=== PATIENT | female | born 1940 | race Caucasian/White ===

== ENCOUNTER 2017-05-12 18:11 | Inpatient (IN) | payer OTHER ==
[~2017-05-12] VITALS: Ht 154.9 cm; Wt 82.8 kg
[2017-05-12 19:56] LABS: BASOPHIL % 0.2 % (0-2); PLATELET COUNT 160 x10^3mcL (130-400)
[2017-05-12 19:57] LABS: RED CELL DISTRIBUTION WIDTH 24.5 % (11.5-14.5)
[2017-05-12 20:03] LABS: CALCIUM 8.4 mg/dL (8.5-10.1); CARBON DIOXIDE 28.1 mmol/L (21-32); CHLORIDE SERUM 101 mmol/L (98-107); CREATININE SERUM 3.8 mg/dL (0.6-1.0); GLUCOSE SERUM 116 mg/dL (74-106); POTASSIUM SERUM 3.7 mmol/L (3.5-5.1); SODIUM SERUM 138 mmol/L (136-145)
[2017-05-12 20:08] LABS: ALKALINE PHOSPHATASE 148 U/L (46-116); ALT/SGPT 19 U/L (14-59); AST/SGOT 22 U/L (15-37); BILIRUBIN TOTAL 0.4 mg/dL (0.20-1.00); HDL CHOLESTEROL 44 mg/dL (40-60)
[2017-05-12 20:10] LABS: ALBUMIN 1.6 g/dL (3.4-5.0); CHOLESTEROL 73 mg/dL (<200); TOTAL PROTEIN, SERUM 5.6 g/dL (6.4-8.2)
[2017-05-12] MEDS ORDERED: [UNRECOGNIZED DRUG - CODE] ID (20:33)
[2017-05-12] MEDS ORDERED: METOPROLOL TART50 MG PO (20:34)
[2017-05-12] MEDS ORDERED: NORCO1 TA2 PO (20:34)
[2017-05-12] MEDS ORDERED: LISINOPRIL2.5 MG PO (20:35)
[2017-05-12] MEDS ORDERED: GLUCOTROL5 MG PO (20:35)
[2017-05-12] MEDS ORDERED: ELIQUIS2.5 MG PO (20:35)
[2017-05-12] MEDS ORDERED: ASPIR 8181 MG PO (20:35)
[2017-05-12] MEDS ORDERED: PROTONIX40 MG PO (20:36)
[2017-05-12] MEDS ORDERED: DILTIAZEM HCL120 M2 PO (20:37)
[2017-05-12] MEDS ORDERED: LIPITOR40 MG PO (20:38)
[2017-05-12 22:05] LABS: PHOSPHOROUS 3.3 mg/dL (2.5-4.9)
[2017-05-12 22:06] LABS: CHOLESTEROL/HDL RATIO 1.7
[2017-05-12 22:07] VITALS: BP 123/53
[2017-05-12 22:10] LABS: T3 TOTAL 0.48 ng/mL
[2017-05-12 22:18] LABS: FREE T4 1.3 ng/dL (0.76-1.46); FREE THYROXINE INDEX 2.7 ug/dL (1.4-4.5); T4(THYROXINE) 6.1 ug/dL (4.7-13.3)
[2017-05-13] VITALS (7 sets, daily range): BP systolic 93–133; BP diastolic 34–70
[2017-05-13 09:10] LABS: CALCIUM 8.7 mg/dL (8.5-10.1); CARBON DIOXIDE 26.1 mmol/L (21-32); CHLORIDE SERUM 99 mmol/L (98-107); GLUCOSE SERUM 222 mg/dL (74-106); POTASSIUM SERUM 4.3 mmol/L (3.5-5.1); SODIUM SERUM 134 mmol/L (136-145)
[2017-05-13 09:22] LABS: BASOPHIL % 0.1 % (0-2); PLATELET COUNT 141 x10^3mcL (130-400)
[2017-05-13 09:23] LABS: RED CELL DISTRIBUTION WIDTH 23.7 % (11.5-14.5)
[2017-05-13 09:41] LABS: rbc morphology (normal/abnorm) ABNORMAL (NORMAL)
[2017-05-14] VITALS: BP 93/50
[2017-05-14 05:21] VITALS: BP 113/50
[2017-05-14 08:03] LABS: BASOPHIL % 0.5 % (0-2); PLATELET COUNT 166 x10^3mcL (130-400)
[2017-05-14 08:11] LABS: RED CELL DISTRIBUTION WIDTH 23.1 % (11.5-14.5)
[2017-05-14 08:16] LABS: CALCIUM 8.5 mg/dL (8.5-10.1); CARBON DIOXIDE 26.1 mmol/L (21-32); CHLORIDE SERUM 97 mmol/L (98-107); GLUCOSE SERUM 68 mg/dL (74-106); MAGNESIUM 1.7 mg/dL (1.8-2.4); PHOSPHOROUS 4.4 mg/dL (2.5-4.9); POTASSIUM SERUM 4.5 mmol/L (3.5-5.1); SODIUM SERUM 131 mmol/L (136-145)
[2017-05-14 08:23] LABS: CREATININE SERUM 4.3 mg/dL (0.6-1.0)
[2017-05-14 09:25] VITALS: BP 102/42
[2017-05-14 13:30] VITALS: BP 124/50
[2017-05-14 17:10] VITALS: BP 92/30
[2017-05-14 21:58] VITALS: BP 101/39
[2017-05-15 05:59] VITALS: BP 97/38
[2017-05-15 06:33] LABS: CALCIUM 8.8 mg/dL (8.5-10.1); CARBON DIOXIDE 27.6 mmol/L (21-32); CHLORIDE SERUM 96 mmol/L (98-107); CREATININE SERUM 3.1 mg/dL (0.6-1.0); GLUCOSE SERUM 130 mg/dL (74-106); SODIUM SERUM 130 mmol/L (136-145)
[2017-05-15 06:45] LABS: BASOPHIL % 0.2 % (0-2)
[2017-05-15 07:20] LABS: RED CELL DISTRIBUTION WIDTH 22.5 % (11.5-14.5)
[2017-05-15 07:21] LABS: PLATELET COUNT 158 x10^3mcL (130-400)
[2017-05-15 09:17] VITALS: BP 108/48
[2017-05-15 13:27] VITALS: BP 118/53
[2017-05-15 17:45] VITALS: BP 106/51
[2017-05-15 21:23] VITALS: BP 110/47
[2017-05-15 23:25] VITALS: BP 131/54
[2017-05-16 05:31] VITALS: BP 116/44
[2017-05-16 06:23] LABS: CALCIUM 8.5 mg/dL (8.5-10.1); CARBON DIOXIDE 26.6 mmol/L (21-32); CHLORIDE SERUM 94 mmol/L (98-107); CREATININE SERUM 2.6 mg/dL (0.6-1.0); GLUCOSE SERUM 103 mg/dL (74-106); MAGNESIUM 1.6 mg/dL (1.8-2.4); POTASSIUM SERUM 3.3 mmol/L (3.5-5.1); SODIUM SERUM 129 mmol/L (136-145)
[2017-05-16 08:00] LABS: PLATELET COUNT 181 x10^3mcL (130-400)
[2017-05-16 08:56] VITALS: BP 114/51
[2017-05-16 11:25] LABS: ATYPICAL LYMPH 3 %; BAND NEUTROPHIL 0 % (0-10); BASOPHIL 1 % (0-2); MONOCYTE 8 % (0-7); SEGMENTED NEUTROPHILS 72 % (37-75)
[2017-05-16 11:26] LABS: PLATELET MORPHOLOGY PLATELETS DECREASED; rbc morphology (normal/abnorm) ABNORMAL (NORMAL)
[2017-05-16 14:28] VITALS: BP 108/55
[2017-05-16 17:49] VITALS: BP 108/55
[2017-05-16 17:54] VITALS: BP 121/50
[2017-05-16 21:52] VITALS: BP 99/28
[2017-05-17 05:37] VITALS: BP 106/34
[2017-05-17 06:55] LABS: CALCIUM 8.6 mg/dL (8.5-10.1); CARBON DIOXIDE 25.7 mmol/L (21-32); CHLORIDE SERUM 93 mmol/L (98-107); CREATININE SERUM 3.3 mg/dL (0.6-1.0); GLUCOSE SERUM 125 mg/dL (74-106); MAGNESIUM 2.2 mg/dL (1.8-2.4); PHOSPHOROUS 4.7 mg/dL (2.5-4.9); POTASSIUM SERUM 4.2 mmol/L (3.5-5.1); SODIUM SERUM 128 mmol/L (136-145)
[2017-05-17 07:05] LABS: BASOPHIL % 0.7 % (0-2); PLATELET COUNT 191 x10^3mcL (130-400)
[2017-05-17 07:28] LABS: RED CELL DISTRIBUTION WIDTH 21.9 % (11.5-14.5)
[2017-05-17 09:27] VITALS: BP 132/59
[2017-05-17 13:43] VITALS: BP 108/42
[2017-05-17 17:39] VITALS: BP 135/58
[2017-05-17 21:52] VITALS: BP 101/47
[2017-05-18 05:52] VITALS: BP 123/69
[2017-05-18 07:37] LABS: CALCIUM 8.5 mg/dL (8.5-10.1); CHLORIDE SERUM 90 mmol/L (98-107); CREATININE SERUM 3.9 mg/dL (0.6-1.0); GLUCOSE SERUM 143 mg/dL (74-106); POTASSIUM SERUM 4.7 mmol/L (3.5-5.1)
[2017-05-18 07:39] LABS: SODIUM SERUM 124 mmol/L (136-145)
[2017-05-18 09:39] VITALS: BP 133/67
[2017-05-18 09:40] LABS: BASOPHIL % 0.7 % (0-2); PLATELET COUNT 213 x10^3mcL (130-400)
[2017-05-18 09:44] LABS: RED CELL DISTRIBUTION WIDTH 20.8 % (11.5-14.5)
[2017-05-18] MEDS ORDERED: LAC PO (15:11)
[2017-05-18] MEDS ORDERED: CLEOCIN HCL300 MG PO (15:11)
[2017-05-18] MEDS ORDERED: LEVAQUIN750 MG PO (15:11)
[2017-05-18 16:29] VITALS: BP 112/60
[2017-05-18 16:43] LABS: CARBON DIOXIDE 22.4 mmol/L (21-32); CHLORIDE SERUM 96 mmol/L (98-107); CREATININE SERUM 2.9 mg/dL (0.6-1.0); GLUCOSE SERUM 172 mg/dL (74-106); POTASSIUM SERUM 3.5 mmol/L (3.5-5.1); SODIUM SERUM 130 mmol/L (136-145)
== END 2017-05-18 17:11 | DRG 720 ==
LOC: ED 18:11 → DU 20:35 → MU 05-18 06:25
PROVIDERS: Emergency Medicine; Family Medicine; Internal Medicine Nephrology; ADMIT Family Medicine
PROC: 5A1D70Z Performance of Urinary Filtration, Intermittent, Less than 6 Hours Per Day (ICD-10-PCS; principal; 2017-05-14)
PROC: 5A1D70Z Performance of Urinary Filtration, Intermittent, Less than 6 Hours Per Day (ICD-10-PCS; 2017-05-15)
PROC: 5A1D70Z Performance of Urinary Filtration, Intermittent, Less than 6 Hours Per Day (ICD-10-PCS; 2017-05-18)
DX: A41.9 Sepsis, unspecified organism (principal); N17.0 Acute kidney failure with tubular necrosis; J69.0 Pneumonitis due to inhalation of food and vomit; I21.A1 Myocardial infarction type 2; E43 Unspecified severe protein-calorie malnutrition; G93.41 Metabolic encephalopathy; I50.43 Acute on chronic combined systolic (congestive) and diastolic (congestive) heart failure; I42.9 Cardiomyopathy, unspecified; N18.6 End stage renal disease; I48.91 Unspecified atrial fibrillation; E11.649 Type 2 diabetes mellitus with hypoglycemia without coma; R65.20 Severe sepsis without septic shock; I13.2 Hypertensive heart and chronic kidney disease with heart failure and with stage 5 chronic kidney disease, or end stage renal disease; E05.90 Thyrotoxicosis, unspecified without thyrotoxic crisis or storm; D63.1 Anemia in chronic kidney disease; H54.62 Unqualified visual loss, left eye, normal vision right eye; E66.9 Obesity, unspecified; Z66 Do not resuscitate; Z99.2 Dependence on renal dialysis; Z68.33 Body mass index [BMI] 33.0-33.9, adult; Z79.84 Long term (current) use of oral hypoglycemic drugs; Z86.73 Personal history of transient ischemic attack (TIA), and cerebral infarction without residual deficits; Z88.0 Allergy status to penicillin; K21.9 Gastro-esophageal reflux disease without esophagitis; E78.5 Hyperlipidemia, unspecified; E87.1 Hypo-osmolality and hyponatremia; E87.6 Hypokalemia; H54.40 Blindness, one eye, unspecified eye
CPT/HCPCS: 82962; 83880; 84439; 97110-GP; J1610; J1885; J1956; J2310; J3475; J3490; J7030; J7042; J7070; J7620; P9047; Q0092

== ENCOUNTER 2017-06-07 14:00 | Inpatient (IN) | payer OTHER ==
[~2017-06-07] VITALS: Ht 152.4 cm; Wt 81.9 kg
[~2017-06-07 14:00] MED LIST: ASPIR 8181 MG PO; CLEOCIN HCL300 MG PO; DILTIAZEM HCL120 M2 PO; ELIQUIS2.5 MG PO; GLUCOTROL5 MG PO; LAC PO; LEVAQUIN750 MG PO; LIPITOR40 MG PO; LISINOPRIL2.5 MG PO; METOPROLOL TART50 MG PO; NORCO1 TA2 PO; PROTONIX40 MG PO; [UNRECOGNIZED DRUG - CODE] ID
[2017-06-07 15:53] LABS: PLATELET COUNT 269 x10^3mcL (130-400)
[2017-06-07 16:10] LABS: CALCIUM 10.1 mg/dL (8.5-10.1); CARBON DIOXIDE 29.1 mmol/L (21-32); CHLORIDE SERUM 103 mmol/L (98-107); GLUCOSE SERUM 108 mg/dL (74-106); SODIUM SERUM 139 mmol/L (136-145)
[2017-06-07 16:12] LABS: RED CELL DISTRIBUTION WIDTH 19.2 % (11.5-14.5)
[2017-06-07 16:14] LABS: ALKALINE PHOSPHATASE 175 U/L (46-116); ALT/SGPT 12 U/L (14-59); AST/SGOT 21 U/L (15-37); BILIRUBIN TOTAL 0.47 mg/dL (0.20-1.00); LIPASE 28 IU/L (73-393)
[2017-06-07 16:16] LABS: TOTAL PROTEIN, SERUM 4.3 g/dL (6.4-8.2)
[2017-06-07] MEDS ORDERED: APAP500 MG PO (17:04)
[2017-06-07] MEDS ORDERED: DULCOLAX10 M1 RC (17:06)
[2017-06-07] MEDS ORDERED: [UNRECOGNIZED DRUG - CODE] TOP (17:06)
[2017-06-07] MEDS ORDERED: FLEET ENEMA135 ML RC (17:06)
[2017-06-07] MEDS ORDERED: RELION HUMUL100 U/M2 IJ (17:09)
[2017-06-07] MEDS ORDERED: RENA-VITE1 TAB PO (17:09)
[2017-06-07 18:01] LABS: MAGNESIUM 2.1 mg/dL (1.8-2.4); PHOSPHOROUS 4.6 mg/dL (2.5-4.9)
[2017-06-07 18:19] LABS: CHOLESTEROL/HDL RATIO 6.4
[2017-06-07 18:29] LABS: rbc morphology (normal/abnorm) ABNORMAL (NORMAL)
[2017-06-07 18:33] LABS: SEGMENTED NEUTROPHILS 80 % (37-75)
[2017-06-07 18:34] LABS: BAND NEUTROPHIL 13 % (0-10); MONOCYTE 2 % (0-7)
[2017-06-07 18:36] LABS: PLATELET MORPHOLOGY LARGE PLATELET SEEN
[2017-06-07 20:35] VITALS: BP 149/89
[2017-06-07 20:45] LABS: BASOPHIL % 0.2 % (0-2); PLATELET COUNT 295 x10^3mcL (130-400); RED CELL DISTRIBUTION WIDTH 21.2 % (11.5-14.5)
[2017-06-07 23:19] VITALS: BP 91/70
[2017-06-08 03:18] VITALS: BP 86/68
[2017-06-08 05:47] LABS: ALBUMIN 1.1 g/dL (3.4-5.0); CALCIUM 9.9 mg/dL (8.5-10.1); CHLORIDE SERUM 100 mmol/L (98-107); CREATININE SERUM 3.1 mg/dL (0.6-1.0); GLUCOSE SERUM 204 mg/dL (74-106); PHOSPHOROUS 4.9 mg/dL (2.5-4.9); POTASSIUM SERUM 3.9 mmol/L (3.5-5.1); SODIUM SERUM 136 mmol/L (136-145)
[2017-06-08 08:25] VITALS: BP 103/62
[2017-06-08 08:47] LABS: PLATELET COUNT 286 x10^3mcL (130-400)
[2017-06-08 08:54] LABS: RED CELL DISTRIBUTION WIDTH 19.4 % (11.5-14.5)
[2017-06-08 09:40] LABS: BAND NEUTROPHIL 26 % (0-10); BASOPHIL 0 % (0-2); MONOCYTE 2 % (0-7); SEGMENTED NEUTROPHILS 65 % (37-75)
[2017-06-08 09:41] LABS: rbc morphology (normal/abnorm) ABNORMAL (NORMAL); target cell (codocyte) 1+; tear drop cell (dacryocyte) 1+
[2017-06-08 09:42] LABS: PLATELET MORPHOLOGY LARGE PLATELET SEEN
[2017-06-08 12:01] VITALS: BP 118/50
== END 2017-06-08 20:58 | disposition expired | DRG 720 ==
LOC: ED 14:00 → IC 16:43 → EDBEDREQSVC 16:46 → EDBEDREQ 16:46 → IC 18:14
PROVIDERS: Emergency Medicine; Family Medicine
PROC: 02HV33Z Insertion of Infusion Device into Superior Vena Cava, Percutaneous Approach (ICD-10-PCS; principal; 2017-06-07)
PROC: B5181ZA Fluoroscopy of Superior Vena Cava using Low Osmolar Contrast, Guidance (ICD-10-PCS; 2017-06-07)
DX: A41.9 Sepsis, unspecified organism (principal); N17.0 Acute kidney failure with tubular necrosis; J96.00 Acute respiratory failure, unspecified whether with hypoxia or hypercapnia; I46.9 Cardiac arrest, cause unspecified; R65.21 Severe sepsis with septic shock; G93.41 Metabolic encephalopathy; J69.0 Pneumonitis due to inhalation of food and vomit; L89.311 Pressure ulcer of right buttock, stage 1; E43 Unspecified severe protein-calorie malnutrition; I13.2 Hypertensive heart and chronic kidney disease with heart failure and with stage 5 chronic kidney disease, or end stage renal disease; L89.322 Pressure ulcer of left buttock, stage 2; N18.6 End stage renal disease; D68.69 Other thrombophilia; E11.51 Type 2 diabetes mellitus with diabetic peripheral angiopathy without gangrene; E11.42 Type 2 diabetes mellitus with diabetic polyneuropathy; I48.91 Unspecified atrial fibrillation; D63.1 Anemia in chronic kidney disease; L03.116 Cellulitis of left lower limb; L03.115 Cellulitis of right lower limb; Z99.2 Dependence on renal dialysis; Z79.4 Long term (current) use of insulin; Z86.73 Personal history of transient ischemic attack (TIA), and cerebral infarction without residual deficits; Z88.0 Allergy status to penicillin; I50.9 Heart failure, unspecified; H54.62 Unqualified visual loss, left eye, normal vision right eye; Z83.3 Family history of diabetes mellitus; Z82.49 Family history of ischemic heart disease and other diseases of the circulatory system; E66.9 Obesity, unspecified; E11.22 Type 2 diabetes mellitus with diabetic chronic kidney disease; Z66 Do not resuscitate
CPT/HCPCS: 36600; 82962; 83880; 87804; C9113; J1265; J1644; J1956; J2270; J2543; J3010; J3370; J3490; J7030; Q0092; Q0163